=== PATIENT | male | born 1955 | race Two or more races ===

== ENCOUNTER 2022-02-09 17:09 | Inpatient (IN) | payer OTHER, MEDICAID ==
[~2022-02-09] VITALS: Ht 162.6 cm; Wt 63.6 kg
[2022-02-09 18:57] LABS: Albumin 3.7 g/dL (3.4-5.0); BUN/Creatinine Ratio 16.6; Calcium 9.6 mg/dL (8.5-10.1)
[2022-02-09 19:00] LABS: Bilirubin, Total 0.2 mg/dL (0.2-1.0); Total Protein 6.9 g/dL (6.4-8.2)
[2022-02-09 19:09] LABS: Basophils # (auto) 0.1 10 ^3/uL (0-0.2); Basophils % (auto) 2.7 % (0.0-2.0); Eosinophils # (auto) 0.4 10 ^3/uL (0-0.8); Eosinophils % (auto) 6.6 % (0.0-7.0); Hematocrit 32.8 % (41.0-53.0); Lymphocytes # (auto) 1.4 10 ^3/uL (0.4-5.4); Lymphocytes % (auto) 25.8 % (10.0-50.0); Mean Corpuscular Hemoglobin 30.5 pg (28.0-32.0); Mean Corpuscular Hgb Conc. 33.5 g/dL (32.0-36.0); Mean Corpuscular Volume 91.2 fL (80.0-100.0); Monocytes # (auto) 0.6 10 ^3/uL (0-1.3); Monocytes % (auto) 11.1 % (0.0-12.0); Neutrophils # (auto) 2.9 10 ^3/uL (1.6-8.6); Neutrophils % (auto) 53.8 % (37.0-80.0); Nucleated Red Blood Cells % 0.2 %; Red Cell Distribution Width 14.7 % (11.8-14.3); White Blood Cell 5.5 10^3/uL (4.4-10.8)
[2022-02-09 19:29] LABS: Potassium 6.2 mmol/L (3.5-5.1)
[2022-02-09] MEDS ORDERED: LORazepam 2MG/ML-1ML VIAL IV ONE (20:45)
[2022-02-09] MEDS ORDERED: InsuLIN REG 1unit/0.01ml Soln (100units/ml) IV ONE (21:00)
[2022-02-09] MEDS ORDERED: DEXTROSE (50%) 50ML SYRG IV ONE (21:00)
[2022-02-09] MEDS ORDERED: ALBUTEROL SULF 2.5 MG/0.5ML(0.5%) NEB SOLN NEB ONE (21:00)
[2022-02-09] MEDS ORDERED: SODIUM ZIRCONIUM CYCL 10 GM PAK PO ONE (21:00)
[2022-02-09] MEDS ORDERED: CALCIUM GLUC 1,000mg/50ml-NS 50 ML IV ONE (21:00)
[2022-02-09] MEDS ORDERED: HYDROcodone-ACET 5/325MG TAB PO PRN (23:45)
[2022-02-09] MEDS ORDERED: DOCUSATE SOD 100 MG CAP PO PRN (23:45)
[2022-02-09] MEDS ORDERED: ONDANSETRON HCL 4 MG/2 ML VIAL IV PRN (23:45)
[2022-02-09] MEDS ORDERED: DEXTROSE (50%) 50ML SYRG IV PRN (23:45)
[2022-02-09] MEDS ORDERED: ACETAMINOPHEN 325 MG TAB PO PRN (23:45)
[2022-02-10] MEDS ORDERED: NITROGLYCERIN 0.4 MG SL TAB SL PRN
[2022-02-10] MEDS ORDERED: MORPHINE SULFATE INJ 2 MG/ml SYRG IV PRN
[2022-02-10 05:26] LABS: Urine Bacteria FEW /hpf (None Seen); Urine Blood Negative /uL (Negative); Urine Specific Gravity 1.016 (1.001-1.035); Urine WBC 26 /hpf (0 - 3)
[2022-02-10] MEDS: SODIUM CHLOR 0.9% PF (SALINE LOCK) 10ML VIAL/SYR IV SCH ×3 (06:00→21:15)
[2022-02-10 06:40] LABS: Basophils # (auto) 0.1 10 ^3/uL (0-0.2); Basophils % (auto) 1.2 % (0.0-2.0); Eosinophils # (auto) 0.2 10 ^3/uL (0-0.8); Eosinophils % (auto) 3.3 % (0.0-7.0); Hematocrit 26.3 % (41.0-53.0); Hemoglobin 9.1 g/dL (13.5-17.5); Lymphocytes # (auto) 1.1 10 ^3/uL (0.4-5.4); Lymphocytes % (auto) 16.6 % (10.0-50.0); Mean Corpuscular Hemoglobin 31.9 pg (28.0-32.0); Mean Corpuscular Hgb Conc. 34.8 g/dL (32.0-36.0); Mean Corpuscular Volume 91.9 fL (80.0-100.0); Monocytes # (auto) 0.7 10 ^3/uL (0-1.3); Monocytes % (auto) 10.2 % (0.0-12.0); Neutrophils # (auto) 4.7 10 ^3/uL (1.6-8.6); Neutrophils % (auto) 68.7 % (37.0-80.0); Red Blood Cells 2.86 10^6/uL (4.5-5.90); Red Cell Distribution Width 14.4 % (11.8-14.3); White Blood Cell 6.8 10^3/uL (4.4-10.8)
[2022-02-10 06:50] LABS: Potassium 4.9 mmol/L (3.5-5.1)
[2022-02-10 06:58] LABS: Albumin 2.9 g/dL (3.4-5.0); BUN/Creatinine Ratio 15.9; Bilirubin, Total 0.2 mg/dL (0.2-1.0); Calcium 9.2 mg/dL (8.5-10.1)
[2022-02-10] MEDS: ACCU-CHEK COMFORT CURVE STRIP VI SCH ×4 (07:36→21:16)
[2022-02-10] MEDS: InsuLIN REG 1unit/0.01ml Soln (100units/ml) SC SCH ×3 (07:37→17:00)
[2022-02-10 09:00] VITALS: BP 132/53
[2022-02-10] MEDS ORDERED: FAMOTIDINE (10MG/ML) 2ML VL IV SCH (10:00)
[2022-02-10] MEDS ORDERED: HEPARIN SODIUM (PORCINE) 5000 UNITS/ML 1ML VIAL SC SCH (10:00)
[2022-02-10] MEDS ORDERED: LISINOPRIL 10 MG TAB PO SCH (10:00)
[2022-02-10] MEDS: GABAPENTIN 300 MG CAP PO SCH ×3 (10:19→21:43)
[2022-02-10] MEDS: hydrALAZINE HCL 20 MG/ML VL IV PRN ×2 (12:09→21:18)
[2022-02-10 13:00] VITALS: BP 169/88
[2022-02-10] MEDS ORDERED: amLODIPine BESYLATE 5 MG TAB PO ONE (14:45)
[2022-02-10 16:34] VITALS: BP 149/80
[2022-02-10] MEDS ORDERED: TAMSULOSIN HYDROCHLORIDE 0.4 MG CAP PO SCH (18:00)
[2022-02-10] MEDS ORDERED: SODIUM ZIRCONIUM CYCL 10 GM PAK PO ONE (21:15)
[2022-02-10 22:00] VITALS: BP 166/79
[2022-02-10] MEDS ORDERED: InsuLIN REG 1unit/0.01ml Soln (100units/ml) SC SCH (22:00)
[2022-02-11 05:00] VITALS: BP 151/70
[2022-02-11] MEDS: GABAPENTIN 300 MG CAP PO SCH ×2 (05:59→14:00)
[2022-02-11] MEDS: ACCU-CHEK COMFORT CURVE STRIP VI SCH ×3 (05:59→16:58)
[2022-02-11] MEDS: SODIUM CHLOR 0.9% PF (SALINE LOCK) 10ML VIAL/SYR IV SCH ×2 (06:00→13:13)
[2022-02-11 06:07] LABS: Hematocrit 31.8 % (41.0-53.0); Hemoglobin 10.9 g/dL (13.5-17.5); Mean Corpuscular Hemoglobin 31.5 pg (28.0-32.0); Mean Corpuscular Hgb Conc. 34.3 g/dL (32.0-36.0); Mean Corpuscular Volume 91.9 fL (80.0-100.0); Red Blood Cells 3.46 10^6/uL (4.5-5.90); Red Cell Distribution Width 14.4 % (11.8-14.3); White Blood Cell 9.5 10^3/uL (4.4-10.8)
[2022-02-11] MEDS: InsuLIN REG 1unit/0.01ml Soln (100units/ml) SC SCH ×3 (06:10→16:57)
[2022-02-11 06:24] LABS: BUN/Creatinine Ratio 13.6; Calcium 10.2 mg/dL (8.5-10.1); Potassium 4.8 mmol/L (3.5-5.1)
[2022-02-11 06:30] LABS: Band Neutrophils % (manual) 0; Basophils % (manual) 0 (0.0-2.0); Blast Cells 0; Metamyelocytes % 0; Myelocytes % 0; Promyelocytes % 0; Reactive Lymphocytes 0
[2022-02-11 09:00] VITALS: BP 148/77
[2022-02-11] MEDS ORDERED: amLODIPine BESYLATE 5 MG TAB PO SCH (10:00)
[2022-02-11 12:06] LABS: Eosinophils % (manual) 7 (0-7); Lymphocytes % (manual) 20 (10.0-50.0); Monocytes % (manual) 7 (0-12)
[2022-02-11 13:00] VITALS: BP 139/72
[2022-02-11] MEDS ORDERED: AML5T PO (13:23)
[2022-02-11 14:35] VITALS: BP 139/72
[2022-02-11 14:58] VITALS: BP 148/77
[2022-02-11 17:00] VITALS: BP 140/73
== END 2022-02-11 18:00 | disposition home or self-care (01) | DRG 641 ==
LOC: ER 17:09 → TELE 23:49 → TELE-WESTW 02-10 08:03
PROVIDERS: ADMIT Nurse Practitioner Family; ATTEND Internal Medicine
DX: E87.5 Hyperkalemia (principal); N17.9 Acute kidney failure, unspecified; E11.22 Type 2 diabetes mellitus with diabetic chronic kidney disease; E78.5 Hyperlipidemia, unspecified; I12.9 Hypertensive chronic kidney disease with stage 1 through stage 4 chronic kidney disease, or unspecified chronic kidney disease; N18.32 Chronic kidney disease, stage 3b; F32.A Depression, unspecified; F41.9 Anxiety disorder, unspecified; Z20.822 Contact with and (suspected) exposure to COVID-19
CPT/HCPCS: 36415; 71045; 76775; 80048; 80053; 81001; 82962; 83036; 84443; 85007; 85025; 85027; 93005; 94640; 96365; 96366; 96375; 99291; G0378; J1815; J3490